=== PATIENT | male | born 2000 | race Caucasian/White ===

== ENCOUNTER 2025-07-12 20:07 | Inpatient (IN) | payer OTHER ==
[2025-07-12 20:45] LABS: #Basophils 0.05 10x3/uL (0.0-0.2); #Eosinophils 0.10 10x3/uL (0.0-0.5); #Monocytes 0.72 10x3/uL (0.0-1.1); #Neutrophils 7.40 10x3/uL (1.5-8.4); %Basophils 0.5 % (0.0-2.0); %Eosinophils 1.0 % (0.0-6.0); %Lymphocytes 18.2 % (18.0-47.0); %Monocytes 7.1 % (0.0-10.0); %Neutrophils 73.0 % (40.0-75.0); Hematocrit 42.7 % (38.8-50.0); Hemoglobin 15.3 g/dL (13.5-17.5); Mean Corpuscular Hemoglobin 30.3 pg (27.0-33.0); Mean Corpuscular Volume 84.6 fL (81.2-95.1); Platelet Count 294 10x3/uL (150-450); Red Blood Cell (RBC) Count 5.05 10x6/uL (4.32-5.72); White Blood Cell (WBC) Count 10.13 10x3/uL (3.5-10.5)
[2025-07-12] MEDS ORDERED: Acetaminophen 500 MG TAB ONE (20:49)
[2025-07-12 21:03] LABS: ALT (SGPT) 39 U/L (Less than 45); AST (SGOT) 37 U/L (11-34); Albumin 4.7 g/dL (3.1-4.5); Alkaline Phosphatase 68 U/L (40-110); Anion Gap 12 mmol/L (10-20); BUN (Urea Nitrogen) 17 mg/dL (8.9-20.6); Bilirubin, Total 0.4 mg/dL (0.3-1.2); CK (CPK) 228 U/L (30-200); Calc. Creatinine Clearance 0 mL/min (70-130); Calcium 10.0 mg/dL (7.8-10.44); Carbon Dioxide 24 mmol/L (22-29); Chloride 105 mmol/L (98-107); Globulin 2.5 g/dL (2.4-3.5); Glucose 123 mg/dL (70-105); Potassium 3.8 mmol/L (3.5-5.1); Sodium 137 mmol/L (136-145)
[2025-07-12 21:22] LABS: Fibrinogen 171.0 mg/dL (220-504); INR-International Normal Ratio 1.0; PTT 23.2 sec (22.0-33.0); Prothrombin Time 11.0 sec (9.5-12.1)
[2025-07-12] MEDS ORDERED: Guaifenesin DM 100-10/5 ML UDCUP PO PRN (22:24)
[2025-07-12] MEDS ORDERED: Melatonin 3 MG TAB PO PRN (22:24)
[2025-07-12] MEDS ORDERED: Acetaminophen/Codeine 30-300mg Tablet PO PRN (22:24)
[2025-07-12] MEDS ORDERED: Calcium Carbonate 500 MG ChewTAB PO PRN (22:24)
[2025-07-12] MEDS ORDERED: Acetaminophen 325 MG TAB PO PRN (22:24)
[2025-07-12] MEDS ORDERED: Ondansetron PF 4 MG/2 ML Vial IVP PRN (22:24)
[2025-07-12] MEDS ORDERED: Senokot S 8.6-50 MG TAB PO PRN (22:24)
[2025-07-13 03:25] LABS: #Basophils 0.03 10x3/uL (0.0-0.2); #Eosinophils 0.20 10x3/uL (0.0-0.5); #Monocytes 0.72 10x3/uL (0.0-1.1); #Neutrophils 3.92 10x3/uL (1.5-8.4); %Basophils 0.4 % (0.0-2.0); %Eosinophils 2.6 % (0.0-6.0); %Lymphocytes 35.6 % (18.0-47.0); %Monocytes 9.5 % (0.0-10.0); %Neutrophils 51.5 % (40.0-75.0); Hematocrit 38.6 % (38.8-50.0); Hemoglobin 13.6 g/dL (13.5-17.5); Mean Corpuscular Hemoglobin 30.2 pg (27.0-33.0); Mean Corpuscular Volume 85.6 fL (81.2-95.1); Platelet Count 248 10x3/uL (150-450); Red Blood Cell (RBC) Count 4.51 10x6/uL (4.32-5.72); White Blood Cell (WBC) Count 7.61 10x3/uL (3.5-10.5)
[2025-07-13 03:40] LABS: ALT (SGPT) 30 U/L (Less than 45); AST (SGOT) 27 U/L (11-34); Albumin 3.9 g/dL (3.1-4.5); Alkaline Phosphatase 56 U/L (40-110); Anion Gap 9 mmol/L (10-20); BUN (Urea Nitrogen) 16 mg/dL (8.9-20.6); Bilirubin, Total 0.4 mg/dL (0.3-1.2); CK (CPK) 166 U/L (30-200); Calc. Creatinine Clearance 0 mL/min (70-130); Calcium 9.2 mg/dL (7.8-10.44); Carbon Dioxide 25 mmol/L (22-29); Chloride 108 mmol/L (98-107); Globulin 2.2 g/dL (2.4-3.5); Glucose 97 mg/dL (70-105); Magnesium 1.9 mg/dL (1.6-2.6); Potassium 3.4 mmol/L (3.5-5.1); Sodium 139 mmol/L (136-145)
[2025-07-13 03:57] LABS: Fibrinogen 141.0 mg/dL (220-504); INR-International Normal Ratio 1.1; PTT 23.7 sec (22.0-33.0); Prothrombin Time 11.8 sec (9.5-12.1)
[2025-07-13 10:00] VITALS: BMI 29.4
[2025-07-13] MEDS: ANTIVENIN CROTALIDAE IVPB SCH (10:41)
[2025-07-13] MEDS: NS IVPB SCH (10:41)
[2025-07-13] MEDS: Potassium Bicarbonate/Cit Ac 20 MEQ TAB PO SCH (10:42)
[2025-07-14 04:44] LABS: INR-International Normal Ratio 1.1; PTT 23.8 sec (22.0-33.0); Prothrombin Time 11.6 sec (9.5-12.1)
[2025-07-14 04:57] LABS: ALT (SGPT) 29 U/L (Less than 45); AST (SGOT) 23 U/L (11-34); Albumin 4.0 g/dL (3.1-4.5); Alkaline Phosphatase 58 U/L (40-110); Anion Gap 11 mmol/L (10-20); BUN (Urea Nitrogen) 12 mg/dL (8.9-20.6); Bilirubin, Total 0.6 mg/dL (0.3-1.2); Calc. Creatinine Clearance 172 mL/min (70-130); Calcium 9.1 mg/dL (7.8-10.44); Carbon Dioxide 24 mmol/L (22-29); Chloride 109 mmol/L (98-107); Globulin 2.4 g/dL (2.4-3.5); Glucose 92 mg/dL (70-105); Potassium 4.0 mmol/L (3.5-5.1); Sodium 140 mmol/L (136-145)
[2025-07-14 06:00] LABS: Fibrinogen 155.0 mg/dL (220-504)
[2025-07-14 09:03] VITALS: BP 122/68; TEMP 97.4
== END 2025-07-14 09:45 | disposition home or self-care (01) | DRG 918 ==
LOC: CSHERS 20:07 → CSHERHOLD 22:28 → CSHTELE 07-13 09:56 → OBSVTOIN 07-13 14:54
PROVIDERS: ADMIT Student in an Organized Health Care Education/Training Program; ATTEND Family Medicine
DX: T63.011A Toxic effect of rattlesnake venom, accidental (unintentional), initial encounter (principal); M62.82 Rhabdomyolysis
CPT/HCPCS: 36415; 80053; 82550; 83735; 85025; 85384; 85610; 85730; 96365; G0378; J0841; J7050